=== PATIENT | female | born 2000 | race Caucasian/White ===

== ENCOUNTER 2020-06-15 12:58 | Emergency (ER) | payer OTHER ==
[~2020-06-15] VITALS: Ht 165.1 cm; Wt 60.3 kg
[2020-06-15 13:49] LABS: BASOPHILS # (AUTO) 0.04 x10^3/uL (0-0.3); BASOPHILS % (AUTO) 1 % (0-1); EOSINOPHILS # (AUTO) 0.42 x10^3/uL (0-0.8); EOSINOPHILS % (AUTO) 5 % (1-7); LYMPHOCYTES # (AUTO) 3.24 x10^3/uL (1-6.1); LYMPHOCYTES % (AUTO) 36 % (22-44); MD NO; MEAN CORPUSCULAR HGB CONC 32.8 g/dL (32.4-35.8); MONOCYTES # (AUTO) 0.51 x10^3/uL (0-1.4); MONOCYTES % (AUTO) 6 % (2-9); NEUTROPHILS # (AUTO) 4.75 x10^3/uL (1.8-8.0); NEUTROPHILS % (AUTO) 53 % (42-75); PLATELET COUNT 292 x10^3/uL (130-400); RED BLOOD COUNT 5.24 x10^6/uL (3.82-5.3); RED CELL DISTRIBUTION WIDTH 12.9 % (9.6-15.2)
[2020-06-15 13:55] LABS: ALANINE AMINOTRANSFERASE 21 U/L (12-78); ALBUMIN 3.8 g/dL (3.4-5.0); ANION GAP 5 mmol/L (5-15); CALCIUM 9.4 mg/dL (8.5-10.1); CHLORIDE 108 mmol/L (98-107); CREATININE 0.88 mg/dL (0.55-1.02)
[2020-06-15 13:58] LABS: ALKALINE PHOSPHATASE 55 U/L (45-117); BILIRUBIN,TOTAL 1.9 mg/dL (0.2-1.0); TOTAL PROTEIN 7.8 g/dL (6.4-8.2)
--- NOTE | 2020-06-15 14:41 | NUR ---
BETTINA RN: PATIENT ARRIVES WITH HEADACHE STARTING LAST NIGHT WHILE GETTING PEDICURES. C/O PAIN ONTOP OF HEAD. HAS HX OF MIGRAINES FOR APPROX 5 YEARS. PATIENT HAD NUMBNESS IN HER PINKY BUT TODAY IT STARTED TO GO UP HER HAND WITH PROGRESIBELY WORSE NUMBNESS. PATIENT VSS AT THIS TIME. AUNT AT [facility]. AUNT AND PATIENT CONCERNED MOM HAS HX AT 26 YEARS OF AGE OF HAVING SAME SYMPTOMS AND ENDED UP HAVING A SYNCOPAL EPISODE IN BATHROOM BEING IN A COMA AND JUST RECENTLY WAS DIAGNOSED WITH ADEM. PATIENT AOX4, NAD AT THIS TIME.
[2020-06-15 15:08] LABS: HCG UR SG 1.012 (1.003-1.030); MICROSCOPIC NOT IND
--- NOTE | 2020-06-15 16:24 | NUR ---
MD CONSULTED WITH NEURO. NEURO RECOMMENDS MRI. PT AND FAMILY DISCUSSING IF THE WANT TO HAVE MRI HERE OR OUTPATIENT.
[2020-06-15 16:42] VITALS: BP 107/62
--- NOTE | 2020-06-15 16:55 | NUR ---
PT TO MRI
[2020-06-15] MEDS ORDERED: SODIUM CHLORIDE FLUSH 10ML SYR IVF ONE (17:00)
[2020-06-15] MEDS ORDERED: GADOTERATE 7.5 MMOL/15 ML SYR ONE (17:30)
--- NOTE | 2020-06-15 17:57 | NUR ---
ALL RESULTS ARE BACK AT THIS TIME. CHART UP FOR RECHECK.
== END 2020-06-15 18:09 | disposition home or self-care (01) ==
LOC: ED 14:31
DX: G43.909 Migraine, unspecified, not intractable, without status migrainosus (principal); R20.0 Anesthesia of skin
CPT/HCPCS: 36415; 70450; 70553; 80053; 81003; 81025; 85025; 99285; A9575